=== PATIENT | female | born 1950 | race Caucasian/White ===

== ENCOUNTER 2025-02-15 12:49 | Outpatient (CLI) | payer MEDICARE, SELFPAY ==
--- OUTSIDE RECORDS SUMMARY | 2025-02-15 12:52 | XMS_ITS ---
Author Organization [facility] Care Team Providers Care Distributor Sales Consultant Name Role Phone Andrea Bigg Unavailable Unavailable Gustavo Edward Unavailable Unavailable More Ott Unavailable Unavailable Allergies and adverse reactions Code CodeSystem Substance Reaction Severity StartDate Concern Status Benadryl Unknown 12/07/2021 active Care Team Name Role Address Phone Organization Dates Pride Andrea PCP [address] [place] [address] (Office): [facility] 12/07/2021 - 12/28/2021 Gustavo Edward [address] [place] [address] (Office): : (Pager): [facility] 12/07/2021 - 12/28/2021 More Ott [address] (Office): [facility] 12/07/2021 - 12/28/2021 Immunizations Immunization Status Vaccine Details Vaccine Code CodeSystem Date Notes TB 2 Step Mantoux Skin Test completed tuberculin skin test; unspecified formulation lotNumber: [id number] expiry: 12/11/2023 Mfg: Bev pasteur Given 0.1 ml Right Forearm intradermally Step 2 of Multi-step with next step required 98 CVX created date: 12/17/2021 consent date: 12/17/2021 administer ed date: 12/17/2021 TB 2 Step Mantoux Skin Test completed tuberculin skin test; unspecified formulation lotNumber: [id number] expiry: 12/11/2023 Mfg: iain cho Given 0.1 ml Left Forearm intradermally Step 1 of Multi-step with next step required 98 CVX created date: 12/08/2021 consent date: 12/08/2021 administer ed date: 12/08/2021 Educated by segundo on 12/08/2021 Medications Section Medication Name Status Code CodeSystem Dose Route Frequency Admin Type Sig Text Start Date End Date Indication Nitroglycer in Tablet Sublingual 0.4 MG active 9 RXNORM 1 table t Sublin gual as needed PRN Give 1 table t subli ngual ly every 5 minut es as neede d for Chest Pain x 3 doses . If no relie f, call 2021 - Chest Pain Plavix Oral Tablet 75 MG active 25586 9 RXNORM 1 table t Oral one time a day Routin e Give 1 table t by mouth one time a day for cabba ge 2021 - cabbage Acetaminoph en Tablet 650 MG active 43590 4 RXNORM 1 table t Oral as needed PRN Give 1 table t by mouth every 6 hours as neede d for Gener al Disco mfort 2021 - General Discomfort Pramipexole Dihydrochlo ride Oral Tablet 0.5 MG active 38534 4 RXNORM 1 table t Oral one time a day Routin e Give 1 table t by mouth one time a day for parki nsons 2021 - parkinsons Pramipexole Dihydrochlo ride Oral Tablet active 2 mg Oral at bedtime Routin e Give 2 mg by mouth at bedti me for Parki nson' s 2021 - Parkinson's Atorvastati n Calcium Oral Tablet 40 MG active 45834 1 RXNORM 1 table t Oral one time a day Routin e Give 1 table t by mouth one time a day for hyper lipid emia 2021 - hyperlipide carrie Isosorbide Mononitrate ER Tablet Extended Release 24 Hour 60 MG active 09233 8 RXNORM 1 table t Oral one time a day Routin e Give 1 table t by mouth one time a day for hyper tensi on 2021 - hypertensio n oxyCODONE HCl Oral Tablet 5 MG active 82389 21 RXNORM 1 table t Oral as needed PRN Give 1 table t by mouth every 6 hours as neede d for pain 2021 - pain Docusate Sodium Oral Tablet 100 MG active 85022 79 RXNORM 1 table t Oral two times a day Routin e Give 1 table t by mouth two times a day for const ipati on 2021 - constipatio n Zinc Oxide Ointment 10 % active 19891123 RXNORM n/a n/a Topica l every day and social media manager Routin e Apply to butto cks topic ally every day and social media manager for skin condi tion excor iatio n 2021 - skin condition Multivitami n Oral Tablet active 1 table t Oral one time a day Routin e Give 1 table t by mouth one time a day for suppl ement 2021 - supplement Bisacodyl Laxative Rectal Suppository 10 MG active 1 suppo sitor y Rectal as needed PRN Inser t 1 suppo sitor y recta lly every 24 hours as neede d for const ipati on 2021 - constipatio n Coreg Oral Tablet 6.25 MG active 02772 8 RXNORM 1 table t Oral two times a day Routin e Give 1 table t by mouth two times a day for HTN 2021 - HTN Allopurinol Oral Tablet 300 MG active 74564 0 RXNORM 1 table t Oral one time a day Routin e Give 1 table t by mouth one time a day for GOUT 2021 - GOUT GlycoLax Powder active 17846 3 RXNORM 17 gram Oral one time a day Routin e Give 17 gram by mouth one time a day for const ipati on mix with 4-8 oz liqui d 2021 - constipatio n Aspirin EC Tablet Delayed Release 81 MG active 40176 6 RXNORM 1 table t Oral one time a day Routin e Give 1 table t by mouth one time a day for DVT Preve ntion 2021 - DVT Prevention Bisacodyl EC Tablet Delayed Release 5 MG active 64892 3 RXNORM 2 table t Oral as needed PRN Give 2 table t by mouth every 24 hours as neede d for const ipati on 2021 - constipatio n Losartan Potassium Oral Tablet 25 MG active 06306 5 RXNORM 1 table t Oral at bedtime Routin e Give 1 table t by mouth at bedti me for HTN 2021 - HTN hydrOXYzine HCl Oral Tablet 25 MG active 80223 8 RXNORM 0.5 table t Oral two times a day Routin e Give 0.5 table t by mouth two times a day for anxie ty for 5 Days AND Give 0.5 table t by mouth every 12 hours as neede d for anxie ty 12/25 anxiety 77066 8 RXNORM 0.5 table t Oral as needed PRN Give 0.5 table t by mouth two times a day for anxie ty for 5 Days AND Give 0.5 table t by mouth every 12 hours as neede d for anxie ty 2021 - anxiety Mental Status Section Date Assessment Total Score Description 12/28/2021 BIMS 15 cognitively int act CAM 0 No delirium ind icated PHQ-9 04 minimal depress ion 12/13/2021 BIMS 15 cognitively int act CAM 0 No delirium ind icated PHQ-9 04 minimal depress ion Insurance Providers Coverage Status Coverage Type Relationship to Subscriber Member Identifier Subscriber Identifier Group Identifier Payer Identifier and Other information 2021 Code: 51 Code System OID:[id number]. 5 Code System Name: Source of Payment Typology ([facility]) Display: Managed Care (Private) Translation: Code: Code System: OID:[id number] .[id number]. 1336 Code System Name: Insurance Type Code ([id number]) Display Name: Health Maintenance Organization (HMO) Plan Code: SELF Code System Name: HL7 RoleCode Code System OID:[id number] Display Name: Self [id number] Root: [id number] Payer Name: Haris Address: [address] City: [place] State: [place] Country: [place] Mr. Youth: [phone] Code: 81 Code System OID:[id number]. 5 Code System Name: Source of Payment Typology ([facility]) Display: Self Pay Translation: Code: 09 Code System: OID:[id number] .[id number]. 1336 Code System Name: Insurance Type Code ([id number]) Display Name: Self-pay Problems Problem # Description Date of onset Resolved Date Code CodeSystem Concern Status 1 AFTERCARE FOLLOWING JOINT REPLACEMENT SURGERY 12/08/[address] active 2 ATHEROSCLEROSIS OF CORONARY ARTERY BYPASS GRAFT(S) WITHOUT ANGINA PECTORIS 12/08/[address] active 3 ATHEROSCLEROTIC HEART DISEASE OF [place] CORONARY ARTERY WITHOUT ANGINA PECTORIS 12/08/[address] active 4 CONSTIPATION, UNSPECIFIED 12/08/[address] active 5 DEPENDENCE ON SUPPLEMENTAL OXYGEN 12/08/19 22 12/15/[address] completed 6 EDEMA, UNSPECIFIED 12/08/[address] active 7 GOUT, UNSPECIFIED 12/08/[address] active 8 HYPERLIPIDEMIA, UNSPECIFIED 12/08/[address] active 9 HYPERTENSIVE HEART DISEASE WITH HEART FAILURE 12/08/[address] active 10 PARKINSON'S DISEASE 12/08/[address] active 11 PERIPROSTHETIC FRACTURE AROUND INTERNAL PROSTHETIC LEFT KNEE JOINT, SUBSEQUENT ENCOUNTER 12/08/[address] active 12 PRESENCE OF AORTOCORONARY BYPASS GRAFT 12/08/[address] active 13 PRESENCE OF LEFT ARTIFICIAL KNEE JOINT 12/08/[address] active 14 RECTOCELE 12/08/[address] active 15 UNSPECIFIED OSTEOARTHRITIS, UNSPECIFIED SITE 12/08/[address] active Reason for Referral No Reasons for Referral Entered Social History Social History Observation Description Start Date End Date Code Code System Current Smoking Status Tobacco smoking consumption unknown 776054902 SNOMED CT Sex Assigned At Female 1950 46994-5 [facility] Gender Identity Sexual Orientation Vital Signs Code Code System Vitals Name Values and Units Timing Information 06682-7 [facility] O2 % BldC Oximetry Value=95.0 Units= % 12/28/2021 8462-4 [facility] Blood Pressure-Diastolic Value=68 Un its=mmHg 12/28/2021 8480-6 [facility] Blood Pressure-Systolic Qneds=728 Un its=mmHg 12/28/2021 9279-1 [facility] Respiratory Rate Value=18.0 Units=/m in 12/28/2021 8310-5 [facility] Body Temperature Value=97.6 Units= F 12/28/2021 8867-4 [facility] Heart rate Value=72.0 Units=/min 06256-6 [facility] Pain Level Value=0.0 12/28/2021 31521-0 [facility] Weight Olxjp=947.8 Units=Lbs 12/2021 8302-2 [facility] Height Value=64.0 Units=Inches 12/07/2021
--- OUTSIDE RECORDS SUMMARY | 2025-02-15 12:52 | XMS_ITS | Clinical Summary ---
Author Organization [facility] Address [address] [place] [address] Care Team Providers Care Botany Teacher Name Role Phone Timothy Salazar MD Primary Care Provider [phone] Allergies Active Allergy Reactions Criticality Noted Date Comments Diphenhydramine Hcl Other (See Comments) Low 2011 HYPERACTIVITY Medications multivitamin with minerals tablet tablet Take 1 tablet by mouth Daily. Active Biotin 5000 MCG chewable tablet Chew 10,000 mcg Daily. Active losartan (COZAAR) 50 MG tablet Take 1 tablet by mouth Daily. Active empagliflozin (JARDIANCE) 10 MG tablet tablet Take 1 tablet by mouth Daily. Active potassium chloride (K-DUR,KLOR-CON) 20 MEQ CR tablet Take 1 tablet by mouth Daily. Active isosorbide mononitrate (IMDUR) 120 MG 24 hr tablet Take 1 tablet by mouth Daily. Active pramipexole (MIRAPEX) 1 MG tablet Take 0.5-2 tablets by mouth 3 (Three) Times a Day. TAKE 1/2 TABLET BY MOUTH EVERY MORNING AND 2 TABLETS BY MOUTH 12 HOURS LATER Active allopurinol (ZYLOPRIM) 300 MG tablet Take 1 tablet by mouth Daily. Active carvedilol (COREG) 6.25 MG tablet Take 1 tablet by mouth 2 (Two) Times a Day With Meals. Active atorvastatin (LIPITOR) 20 MG tablet Take 1 tablet by mouth Daily. Active nitroglycerin (NITROSTAT) 0.[address] 1 tablet under the tongue Every 5 (Five) Minutes As Needed for Chest Pain. Take no more than 3 doses in 15 minutes. Active clopidogrel (PLAVIX) 75 MG tablet Take 1 tablet by mouth Daily. PT TO HOLD (7) DAYS PRIOR TO PROCEDURE PER DR. GIBBONS. Active torsemide (DEMADEX) 20 MG tablet Take 1-2 tablets by mouth Daily As Needed. Active Cholecalciferol (Vitamin D3) 25 MCG (1000 UT) capsule Take 1 capsule by mouth Daily. Active acetaminophen (TYLENOL) 650 MG 8 hr tablet Take 1 tablet by mouth Every 8 (Eight) Hours As Needed for Mild Pain. Active Active Problems Problem Noted Date Diagnosed Date Failure of total knee arthroplasty 12/19/2022 HTN (hypertension) 12/19/2022 HLD (hyperlipidemia) 12/19/2022 Bladder prolapse, female, acquired 12/19/2022 Status post total left knee replacement revision 12/19/2022 Coronary artery disease 12/19/2022 Immunizations Immunization Administration Dates Next Due Fluzone (or Fluarix & Flulaval for VFC) >6mos ,03/22/2019 Fluzone High-Dose 65+YRS 12/08/2017 Fluzone High-Dose 65+yrs 01/09/2021 Pneumococcal Conjugate 13-Valent (PCV13) 018 Social History Tobacco Use Types Packs/Day Years Used Date Smoking Tobacco: Former Cigarettes 0 10/24/2002 - 10/24/2022 Smokeless Tobacco: Never Alcohol Use Standard Drinks/Week Comments Never 0 (1 standard drink = 0.6 oz pur e alcohol) Abuse Screen Answer Date Recorded Unsafe at Home or Work/School Not on file Feels Threatened by Someone? Not on file 05/2023 Does Anyone Keep You from Co ntacting Others or Doint Things Outside the Home? Not on file 12/18/2023 Physical Sign of Abuse Present Not on file 1 Housing Stability Answer Date Recorded Current Living Arrangements Not on file 12/15 Potentially Unsafe Housing Conditions Not on freddie e 12/25/2023 Family and Community Support Answer Pancho e Recorded Help with Day-to-Day Activities Not on file 12/21/2022 Lonely or Isolated Not on file 12/21/2022 Employment Answer Date Recorded Do you want help finding or keeping work or a jo-ann b? Not on file 12/21/2022 Disabilities Answer Date Recorded Concentrating, Remembering, or Making Decisions Difficulty Not on file 12/25/2023 Doing Errands Independently Difficulty Not on fi le 12/25/2023 Education Answer Date Recorded Help with school or training? Not on file Preferred Language Not on file 12/18/2023 Comments Unknown Sex and Gender Information Value Date Recorded Sex Assigned at Not on file Legal Sex Female 11:00 AM EDT Gender Identity Not on file Sexual Orientation Not on file Last Filed Vital Signs Vital Sign Reading Time Taken Comments Blood Pressure 101/49 12/22/2022 9:00 AM EDT Pulse 84 12/22/2022 9:00 AM EDT Temperature 36.7 C (98 F) 12/22/2022 7:05 AM EDT Respiratory Rate 18 12/22/2022 7:05 AM EDT Oxygen Saturation 94% 12/22/2022 9:00 AM EDT Inhaled Oxygen Concentration - - Weight 64.7 kg (142 lb 10.2 oz) 12/12/2022 3:47 PM EDT Height 149.9 cm (4' 11 ) 12/12/2022 3:47 PM EDT Body Mass Index 28.81 12/12/2022 3:47 PM EDT Plan of Treatment Health Maintenance Due Date Last Done Comments DXA SCAN 1950 LIPID PANEL 1950 TDAP/TD VACCINES (1 - Tdap) 06/20/1967 ZOSTER VACCINE (1 of 2) 1998 Pneumococcal Vaccine 50+ (2 of 2 - PCV20 or PCV21) 12/08/2018 12/08/2017 ANNUAL PHYSICAL 11/11/2022 HEPATITIS C SCREENING 11/11/2022 RSV Vaccine - Adults (1 - 1- dose 75+ series) 06/20/2023 INFLUENZA VACCINE 10/15/2024 01/09/2021, , 03/22/2019, Additional history exists COVID-19 Vaccine ( - 2024-2 6 season) 2024 01/29/2021, 06/06/2020, 04/18/2020 Medical Devices Implanted Type Area Balance Wheel Hand Filer Device Identifier Shelf Expiration Date Model / Serial / Lot Dev Contrl Tiss Stratafix Spiral Pdo Bidir 1 [id number] - [id number] Implanted:Qty : 2 on 12/19/2022 by Wan Turner MD at [facility] Implant Left: Knee [employer] DIV OF J AND J 07/15/2027 [id number] / / [id number] Comp Hng Tib/Fem/Kn Triathlon Sz5 11mm - [id number] Implanted:Qty : 1 on 12/19/2022 by Wan Turner MD at [facility] Implant Left: Knee BASIL RANDI [id number] / / [id number] Dev Contrl Tiss Stratafix Spiral Mncryl Pls Ps 3/0 30cm Ud - [id number] Implanted:Qty : 1 on 12/19/2022 by Wan Turner MD at [facility] Implant Left: Knee ETH[employer]ON DIV OF J AND J 05/14/2024 [id number] / / [id number] Baseplt Tib/Kn Triathlon Hng Sz5 - [id number] Implanted:Qty : 1 on 12/19/2022 by Wan Turner MD at [facility] Implant BASIL RANDI [id number] / / [id number] Pk Asmbl Triathlon Std - [id number] Implanted:Qty : 1 on 12/19/2022 by Wan Turner MD at [facility] Implant BASIL RANDI [id number] / / [id number] Aug Hng Tib/Fem/Kn Triathlon Rev Dist Sz5 10mm - [id number] Implanted:Qty : 1 on 12/19/2022 by Wan Turner MD at [facility] Implant BASIL RANDI [id number] / / [id number] Comp Hng Tib/Fem/Kn Triathlon Rev Sz2 Lt - [id number] Implanted:Qty : 1 on 12/19/2022 by Wan Turner MD at [facility] Implant BASIL RANDI [id number] / / [id number] Bumper Hng Triathlon Ntrl - [id number] Implanted:Qty : 1 on 12/19/2022 by Wan Turner MD at [facility] Implant BASIL RANDI [id number] / / [id number] Stem Fem/Kn Triathlon Cmt 83k330af - [id number] Implanted:Qty : 1 on 12/19/2022 by Wan Turner MD at [facility] Implant BASIL RANDI [id number] / / [id number] Bear Tib/Kn Triathlon Hng Sz5to6 - [id number] Implanted:Qty : 1 on 12/19/2022 by Wan Turner MD at [facility] Implant BASIL RANDI [id number] / / [id number] Cmt Bone Simplex/P Tmycin Fdos 10pk - [id number] Implanted:Qty : 2 on 12/19/2022 by Wan Turner MD at [facility] Implant Left: Knee BASIL RANDI 12/15/2023 [id number] / / [id number] Cmt Bone Simplex/P Tmycin Fdos 10pk - [id number] Implanted:Qty : 2 on 12/19/2022 by Wan Turner MD at [facility] Implant Left: Knee BASIL RANDI 03/16/2024 [id number] / / [id number] Cmt Bone Simplex/P Tmycin Fdos 10pk - [id number] Implanted:Qty : 1 on 12/19/2022 by Wan Turner MD at [facility] Implant Left: Knee BASIL RANDI 03/16/2024 [id number] / / [id number] Aug Cone Tib/Kn Triathlon Rev Symm Szb - [id number] Implanted:Qty : 1 on 12/19/2022 by Wan Turner MD at [facility] Implant Left: Knee BASIL RANDI 05/16/2027 [id number] / / [id number] Stem Fem Triath Cmt 53s11ze - [id number] Implanted:Qty : 1 on 12/19/2022 by Wan Turner MD at [facility] Implant Left: Knee BASIL RANDI 09/24/2027 [id number] / / [id number] Plug Bone Restr/Cmt W/Hndl Univ 30mm Lg - [id number] Implanted:Qty : 1 on 12/19/2022 by Wan Turner MD at [facility] Implant Left: Knee BASIL RANDI 06/08/2027 [id number] / / [id number] Ext Stem Triath Kn Totl Cocr Flut 72b559cr - [id number] Implanted:Qty : 1 on 12/19/2022 by Wan Turner MD at [facility] Implant Left: Knee BASIL RANDI 03/22/2025 [id number] / / [id number] Cone Aug Fem/Kn Triathlon Ctr Ti Hz3lzp8 Lt - [id number] Implanted:Qty : 1 on 12/19/2022 by Wan Turner MD at [facility] Implant Left: Knee BASIL RANDI 09/25/2026 [id number] / / [id number] Insurance MEDICARE ADVANTAGE Advance Directives * CPR (Attempt to Resuscitate) (Latest Code Status on File) Date Activated Date Inactivated Comments 12/19/2022 5:42 PM 12/22/2022 5:35 PM Question Answer Comments Code Status (Patient has no pulse and is not breathing): CPR (Attempt to Resuscitate) Medical Interventions (Patie nt has pulse or is breathing): Full Level Of Support Discussed With: Patient Care Teams Botany Teacher Relationship Specialty Start Date End Date Timothy Salazar MD [address] [place] [address] [place] [address] PCP - General Adolescent Medicine 11/14/22
--- OUTSIDE RECORDS SUMMARY | 2025-02-15 12:52 | XMS_ITS | Referral Summary ---
Author Organization [facility] ([place], [place], [place], [place], [place]) Address [address] [place] [address] Care Team Providers Care Ancillary Services Manager Name Role Phone Timothy Salazar MD Primary Care Provider + [phone] Allergies Active Allergy Reactions Criticality Noted Date Comments Diphenhydramine Hcl 08/28/2011 Medications allopurinoL (ZYLOPRIM) 300 MG tablet Take 1 tablet (300 mg total) by mouth daily. 2 Active atorvastatin (LIPITOR) 40 MG tablet Take 1 tablet (40 mg total) by mouth daily as needed. 2 Active carvediloL (COREG) 6.25 MG tablet Take 1 tablet (6.25 mg total) by mouth 2 (two) times daily. 2 Active clopidogreL (PLAVIX) 75 mg tablet Take 1 tablet (75 mg total) by mouth daily. 2 Active potassium chloride SA (K-DUR,KLOR-CON- M) 20 MEQ tablet Take 1 tablet (20 mEq total) by mouth daily as needed. 2 Active pramipexole (MIRAPEX) 1 MG tablet Take 1 tablet (1 mg total) by mouth 2 (two) times daily Take 0.5 tablet in the am and 2 tablets 12 hours later. 2 Active torsemide (DEMADEX) 20 MG tablet Take 1 tablet (20 mg total) by mouth daily as needed 1-2 tablets QD prn. 2 Active acetaminophen (TYLENOL) 650 MG CR tablet Take 1 tablet (650 mg total) by mouth every 6 (six) hours as needed for pain. Active aspirin 81 MG EC tablet Take 1 tablet (81 mg total) by mouth daily. Active nitroglycerin (NITROSTAT) 0.[address] 1 tablet (0.4 mg total) under the tongue every 5 (five) minutes as needed Put 1 pill under tongue every 5min as needed for chest pain.No more than 3 doses in 15min.Call 911 if pain unrelieved 5min after 1st dose. Active traMADoL (ULTRAM) 50 mg tablet Take 1 tablet (50 mg total) by mouth every 8 (eight) hours as needed. Active pantoprazole (PROTONIX) 40 MG tablet Take 1 tablet (40 mg total) by mouth daily. 3 Active multivitamin per tablet Take 1 tablet by mouth daily. Active isosorbide mononitrate (IMDUR) 120 mg 24 hr tabletIndication s:Angina pectoris (HCC) TAKE 1 TABLET BY MOUTH ONCE DAILY 90 tablet 2 4 Active amiodarone (PACERONE) 200 MG tablet Take 1 tablet (200 mg total) by mouth daily. 4 Active gentamicin (GARAMYCIN) 0.1 % cream Apply topically daily. 4 Active Active Problems Problem Noted Date Diagnosed Date Periprosthetic fracture arou nd internal prosthetic left knee joint, subsequent encounter 02/20/2022 S/P total knee arthroplasty, left 02/20/2022 Abnormal nuclear stress test Anxiety Arthritis CAD (coronary artery disease) Angina pectoris CHF (congestive heart failure) Edema Gout HLD (hyperlipidemia) HTN (hypertension) RLS (restless legs syndrome) Shortness of breath Weakness Social History Tobacco Use Types Packs/Day Years Used Date Smoking Tobacco: Some Days Cigarettes Smokeless Tobacco: Never Tobacco Cessation:Ready to Q uit: Not Asked; Counseling Given: Not Answered Alcohol Use Standard Drinks/Week Comments Never 0 (1 standard drink = 0.6 oz pur e alcohol) caffeine use Food Insecurity Answer Date Recorded Food run out past 12 months Not on file 03/17 Food did not last past 12 months Not on file 04/03/2023 Employment Answer Date Recorded Help finding and keeping a job Not on file 0 04/03/2023 Family and Community Support Answer Pancho e Recorded Help with Day to Day Activities Not on file 04/03/2023 Feeling Lonely or Isolated Not on file 04/03 Educational Attainment Answer Date Alireza rded Speak language other than Tajik at home Not on file 04/03/2023 Want help with school or training Not on file 04/03/2023 Substance Use Answer Date Recorded Used prescription meds for non-medical reasons N ot on file 04/03/2023 Used illegal drugs past 12 months Not on file 04/03/2023 Comments Unknown Sex and Gender Information Value Date Recorded Sex Assigned at Not on file Legal Sex Female 5:37 PM CDT Gender Identity Not on file Sexual Orientation Not on file Last Filed Vital Signs Vital Sign Reading Time Taken Comments Blood Pressure 120/80 06/24/2022 1:53 PM EDT Pulse 68 06/24/2022 1:53 PM EDT Temperature - - Respiratory Rate 18 11/12/2023 1:50 PM EDT Oxygen Saturation 94% 06/24/2022 1:53 PM EDT Inhaled Oxygen Concentration - - Weight 65.8 kg (145 lb) 01/14/2024 10:31 AM EDT Height 160 cm (5' 3 ) 01/14/2024 10:31 AM EDT Body Mass Index 25.69 01/14/2024 10:31 AM EDT Plan of Treatment Not on file Insurance [facility] ACCESS HMO MAP Care Teams Ancillary Services Manager Relationship Specialty Start Date End Date Timothy Salazar MD [address] [place] [id number] PCP - General Internal Medicine/Pediatrics 01/21/22
--- OUTSIDE RECORDS SUMMARY | 2025-02-15 12:52 | XMS_ITS | Clinical Summary ---
Author Organization [employer] ([place], [place], [place], [place], [place]) Address [address] [place] [address] Care Team Providers Care [employer] Name Role Phone Timothy Salazar MD Primary Care Provider + [phone] Allergies Active Allergy Reactions Criticality Noted Date [...] (restless legs syndrome) Shortness of breath Weakness Family History Medical History Relation Name Comments Hypertension Father Arthritis Mother Heart disease Mother Hypertension Mother Heart disease Other Hypertension Sister Relation Name Status Comments Father Mother Other Sister Social History Tobacco Use Types Packs/Day Years [...] Date Alireza rded Speak language other than Somali at home Not on file 04/03/2023 Want [...] 01/14/2024 10:31 AM EDT Plan of Treatment Health Maintenance Due Date Last Done Comments Medicare Initial AWV [id number] DXA SCAN 1950 Depression Screening (12+) 1960 Hepatitis C Screening 1966 DTAP/TDAP/TD VACCINES (1 - Tdap) 06/20/1967 Shingles Vaccine (Zoster) (1 of 2) 1998 Respiratory Syncytial Virus (RSV) Adult or (1 - 1-dose 75+ series) 06/20/2023 Falls Risk Screening 03/17/2024 COVID-19 VACCINE (4 - 2024-2 6 season) 2024 01/29/2021, 06/06/2020, 04/18/2020 Influenza Vaccine (#1) 2024 , 12/08/2017, 12/08/2017, Additional history exists Tobacco Cessation Counseling and Screening (12+) 01/13/2025 01/14/2024 Pneumococcal 50+ years Completed 12/08/2017, 2013 Insurance [facility] ACCESS O MAP Care Teams [employer] Relationship Specialty Start Date End Date Timothy Salazar MD [address] [place] [id number] PCP - General Internal Medicine/Pediatrics 01/21/22
--- OUTSIDE RECORDS SUMMARY | 2025-02-15 12:52 | XMS_ITS | Clinical Summary ---
Author Organization [facility] Address [address] [place] [address] Care Team Providers Care Manager Transplant Name Role Phone George Felix MD Primary Care Provider Radha vailable Social History Tobacco Use Types Packs/Day Years Used Date Smoking Tobacco: Never Assessed Comments Unknown Sex and Gender Information Value Date Recorded Sex Assigned at Not on file Legal Sex Female 7:47 PM EDT Gender Identity Not on file Sexual Orientation Not on file Plan of Treatment Health Maintenance Due Date Last Done Comments [facility]-Bone Density Scan 1950 [facility]-Depression Screening 1948 [facility]-Infant/Child/Adol SDOH Screenings 1948 [facility]- SDOH Screenings 1966 [facility]-Adult SDOH Screenings 1966 [facility]-DTaP,Tdap,and Td Vaccines (1 - Tdap) 06/20/1967 [facility]-Zoster Vaccines (1 of 2) 1998 [facility]-Pneumococcal Vaccine: 50+ Years (2 of 2 - PCV20 or PCV21) 12/08/2018 12/08/2017 [facility]-RSV Vaccine: 60+ Years or (1 - 1-dose 75+ series) 06/20/2023 SSI-TDDIL-27 Vaccine ( - 2024- season) 2024 01/29/2021, 06/06/2020, 04/18/2020 [facility]-Influenza Vaccine (#1) 11/15/202401/09, 02/01/2020, 03/22/2019, Additional history exists [facility]-Diabetes: Hemoglobin A1C Discontinued 12/12/2022, 11/14/2022 HPV Vaccines Aged Out No longer eligi ble based on patient's age to complete this topic [facility]-HIB Vaccines Aged Out No longer e ligible based on patient's age to complete this topic [facility]-Hepatitis A Vaccines Aged Out No longer eligible based on patient's age to complete this topic [facility]-IPV Vaccines Aged Out No longer e ligible based on patient's age to complete this topic [facility]-Rotavirus Vaccines Aged Out No lo nger eligible based on patient's age to complete this topic Insurance [employer] Care Teams Manager Transplant Relationship Specialty Start Date End Date George Felix MD PCP - General Family Medicine 09/24/23
--- NOTE | 2025-02-15 12:53 | XR_ITS ---
FINAL REPORT CLINICAL HISTORY: Evaluation of Left Foot Pain FINDINGS: AP, oblique and lateral views of the left foot were obtained. There is no prior exam for comparison. There is no acute fracture or dislocation. Osteopenia limits exam. There is a hallux valgus deformity and multi joint degenerative disease, most pronounced at the 1st MTP joint. Mild pes planus is noted. Soft tissues are unremarkable. IMPRESSION: Exam limited by osteopenia. No acute abnormality. Hallux valgus deformity with degenerative joint disease. Reviewed, Interpreted and Dictated by Daylin Ga MD Transcribed by Mona Padilla Authenticated and [facility]
--- NOTE | 2025-02-15 12:53 | XR_ITS ---
FINAL REPORT CLINICAL HISTORY: Evaluation of Right Foot Pain FINDINGS: AP, oblique and lateral views of the right foot were obtained. There is no prior exam for comparison. Osteopenia limits exam. There is no acute fracture or dislocation. There is deformity of the head of the 2nd proximal phalanx, likely chronic. Hallux valgus deformity is noted with multi joint degenerative disease. Soft tissues are unremarkable. IMPRESSION: Exam limited by osteopenia. No acute abnormality. Hallux valgus deformity with degenerative joint disease. Reviewed, Interpreted and Dictated by Daylin Ga MD Transcribed by Mona Padilla Authenticated and [facility]
== END 2025-02-15 23:59 | disposition home or self-care (01) ==
LOC: RAD 12:50
PROVIDERS: PCP Family Medicine; Visit Provider Podiatrist
DX: M85.872 Other specified disorders of bone density and structure, left ankle and foot (principal); M85.871 Other specified disorders of bone density and structure, right ankle and foot; M20.12 Hallux valgus (acquired), left foot; M20.11 Hallux valgus (acquired), right foot; M19.072 Primary osteoarthritis, left ankle and foot; M19.071 Primary osteoarthritis, right ankle and foot
CPT/HCPCS: 73630